=== PATIENT | male | born 1995 | race Hispanic/Latino ===

== ENCOUNTER 2020-12-07 00:36 | Emergency (ER) | payer OTHER ==
[2020-12-07] MEDS ORDERED: NA CHLORIDE 0.9% 1,000 ML ONE (01:17)
[2020-12-07] MEDS ORDERED: propofoL 200 MG/20 ML VIAL IV ONE ×2 (01:17→02:19)
[2020-12-07] MEDS ORDERED: ONDANSETRON 4 MG/2 ML VIAL ONE (02:27)
[2020-12-07] MEDS ORDERED: MORPHINE 4 MG/ML SYR ONE (02:27)
[2020-12-07] MEDS ORDERED: MIDAZOLAM HCL 2 MG/2 ML INJ ONE ×3 (02:37→02:44)
[2020-12-07] MEDS ORDERED: FENTANYL CITR 100 MCG/2 ML ONE ×2 (02:38→02:48)
--- NOTE | 2020-12-07 02:46 | EDPHYS ---
Physician Documentation [facility] Name: Edinson Brown Age: 25 yrs Sex: Male : 1995 Arrival Date: 12/07/2020 Time: 00:40 Bed 18 Private MD: ED Physician Deon Lopez HPI: 12/07 00:43 This 25 yrs old Male presents to ER via Other with complaints of shoulder jmm dislocation. 00:43 The patient or guardian complains of an injury. right shoulder. Onset: The jmm symptoms/episode began/occurred acutely. Modifying factors: the symptoms are alleviated by nothing. The symptoms are aggravated by movement. Associated signs and symptoms: Pertinent negatives: neck pain, shortness of breath, tingling. The patient has experienced similar episodes in the past. Historical: - Allergies: 00:43 No Known Allergies; ms4 - Home Meds: 00:43 None [Active]; ms4 - Immunization history:: Adult Immunizations up to date, Client reports having NOT received the Covid vaccine. Last tetanus immunization: unknown. - Social history:: Smoking status: unknown. ROS: 00:43 Constitutional: Negative for fever, chills, and weight loss, Cardiovascular: Negative jmm for chest pain, palpitations, and edema, Respiratory: Negative for shortness of breath, cough, wheezing, and pleuritic chest pain. 00:43 MS/extremity: Positive for injury or acute deformity. 00:43 All other systems are negative. Exam: 00:43 Constitutional: This is a well developed, well nourished patient who is awake, alert, jmm and in no acute distress. Head/Face: atraumatic. Eyes: EOMI, no conjunctival erythema appreciated ENT: Moist Mucus Membranes Neck: Trachea midline, Supple Chest/axilla: Normal chest wall appearance and motion. Cardiovascular: Regular rate and rhythm. No edema appreciated Respiratory: Normal respirations, no respiratory distress appreciated Abdomen/GI: Non distended, soft Back: Normal ROM Skin: General appearance color normal 00:43 Musculoskeletal/extremity: deformity noted to the right shoulder, held in internal rotation. 00:43 Skin: Appearance: Color: normal in color. 00:43 Neuro: Orientation: is normal, Mentation: is normal, Memory: is normal. 00:43 Psych: Behavior/mood is pleasant, cooperative, anxious. Vital Signs: 00:40 BP 176 / 99; Pulse 74; Resp 18; Temp 98.9; Pulse Ox 98% ; Weight 86.18 kg; Height 5 ft. ms4 11 in. (180.34 cm); Pain 10/10; 00:40 Body Mass Index 26.50 (86.18 kg, 180.34 cm) ms4 Procedures: 02:43 Reduction: of the right shoulder, using traction, manipulation, Immobilized with sling, brandon Patient tolerated well. Post reduction film - reveals improved alignment. MDM: 01:09 Patient medically screened. [facility] 02:44 Data reviewed: vital signs, nurses notes. Counseling: I had a detailed discussion with brandon the patient and/or guardian regarding: the historical points, exam findings, and any diagnostic results supporting the discharge/admit diagnosis, radiology results, the need for outpatient follow up, to return to the emergency department if symptoms worsen or persist or if there are any questions or concerns that arise at home. 12/07 00:42 Order name: Shoulder Right (2 View) XRAY [facility] 12/07 01:57 Order name: Shoulder Right (2 View) XRAY 12/07 00:42 Order name: Saline Lock; Complete Time: : [facility] 12/07 00:52 Order name: Conscious Sedation; Complete Time: : [facility] Administered Medications: 01:46 Drug: Propofol 100 mg {Note: given by pa. michelle} Route: IVP; Site: left hand; ms4 03:21 Follow up: Response: No adverse reaction ms4 01:54 Drug: Propofol 100 mg {Note: administered by pa. michelle} Route: IVP; Site: left hand; ms4 03:21 Follow up: Response: No adverse reaction ms4 02:05 Drug: morphine 4 mg Route: IVP; Site: left hand; ms4 03:21 Follow up: Response: No adverse reaction ms4 02:18 Drug: Versed (midazolam) 4 mg Route: IVP; Site: left hand; ms4 03:21 Follow up: Response: No adverse reaction ms4 02:18 Drug: fentaNYL (PF) 50 mcg Route: IVP; Site: left hand; ms4 03:20 Follow up: Response: No adverse reaction ms4 02:38 Drug: Etomidate 20 mg Route: IVP; Site: left hand; ms4 03:20 Follow up: Response: No adverse reaction ms4 Disposition: 06:22 Co-signature as Attending Physician, Deon Lopez MD I agree with the assessment and [facility] plan of care. Disposition Summary: 12/07/20 02:45 Discharge Ordered Location: Home [facility] Condition: Stable [facility] Diagnosis - Anterior Shoulder Dislocation [facility] Followup: [facility] - With: Jose J Mack MD - When: 2 - 3 days - Reason: Recheck today's complaints, Continuance of care, Re-evaluation by your physician Discharge Instructions: - Discharge Summary Sheet [facility] - Shoulder Dislocation [facility] Forms: - Medication Reconciliation Form [facility] - Thank You Letter [facility] - Antibiotic Education [facility] - Prescription Opioid Use [facility] Signatures: Dispatcher [employer] Michelle Camp PA PA jmm Holmes, Maurice, MD MD [facility] Ana Paula Diaz RN RN ms4
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
[2020-12-07] MEDS ORDERED: ETOMIDATE 20 MG/10 ML VIAL IV ONE ×2 (02:49→02:50)
[2020-12-07 03:31] VITALS: BP 176/99; TEMP 98.9; O2SAT 98
--- NOTE | 2020-12-07 09:23 | RAD REPORT ---
EXAM DESCRIPTION: RAD - Shoulder Right 2 View - 12/07/2020 1:26 am CLINICAL HISTORY: Right shoulder pain FINDINGS: Anterior humeral dislocation. No fracture seen
--- NOTE | 2020-12-07 09:23 | RAD REPORT ---
EXAM DESCRIPTION: RAD - Shoulder Right 2 View - 12/07/2020 2:51 am CLINICAL HISTORY: Right shoulder dislocation and pain FINDINGS: Previously described dislocation has been reduced. Hill-Sachs deformity is present
== END 2020-12-07 03:23 | disposition home or self-care (01) ==
LOC: ER 00:36
PROC: 0RSJXZZ Reposition Right Shoulder Joint, External Approach (ICD-10-PCS; principal; 2020-12-07)
DX: S43.004A Unspecified dislocation of right shoulder joint, initial encounter (principal)
CPT/HCPCS: 73030 ×2; 96375; 96374; 99285; 23655; J2250 ×2; J2405; J2704; J3010; J7030

== ENCOUNTER 2021-08-15 18:35 | Emergency (ER) | payer OTHER ==
--- NOTE | 2021-08-15 19:54 | RAD REPORT ---
EXAM DESCRIPTION: RAD - Shoulder Right 2 View - 08/15/2021 7:11 pm CLINICAL HISTORY: Right shoulder pain FINDINGS: Hill-Sachs deformity No dislocation
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
[2021-08-15] MEDS ORDERED: ACETAMINOPHEN 500 MG TAB ONE (20:39)
[2021-08-15] MEDS ORDERED: IBUPROFEN 400 MG TAB ONE ×2 (20:39→20:40)
[2021-08-15 21:21] VITALS: O2SAT 100
[2021-08-15 21:32] VITALS: BP 125/88; TEMP 97.5
== END 2021-08-15 20:46 | disposition home or self-care (01) ==
LOC: ER 18:35
DX: M25.511 Pain in right shoulder (principal); W18.30XA Fall on same level, unspecified, initial encounter; Y93.67 Activity, basketball; Y92.147 Courtyard of prison as the place of occurrence of the external cause
CPT/HCPCS: 99283

== ENCOUNTER 2021-12-23 17:01 | Emergency (ER) | payer OTHER ==
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
[2021-12-23] MEDS ORDERED: LIDOCAINE 1% MPF 5 ML VIAL ONE (18:42)
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
[2021-12-23 21:57] VITALS: TEMP 99.6
[2021-12-23 21:59] VITALS: BP 113/81; O2SAT 100
== END 2021-12-23 19:19 | disposition home or self-care (01) ==
LOC: ER 17:01
PROC: 0CQ1XZZ Repair Lower Lip, External Approach (ICD-10-PCS; principal; 2021-12-23)
DX: Z04.71 Encounter for examination and observation following alleged adult physical abuse (principal); S01.511A Laceration without foreign body of lip, initial encounter
CPT/HCPCS: 70450; 70486; 71250; 72125; 76377; 99284; J2001